=== PATIENT | male | born 1950 | race Caucasian/White ===

== ENCOUNTER 2017-07-26 06:02 | Day surgery (SDC) | payer MEDICARE, BC ==
[~2017-07-26] VITALS: Ht 185.4 cm; Wt 97.5 kg
--- NOTE | ~2017-07-26 | EGD ---
EGD REPORT [facility] [address] [place] [address] NAME: CARLO ZEPEDA : [birth year] STATUS : REG [facility]#: [id number] AGE: 67 ADM/REG DATE : 07/26/17 MR#: [id number] REPORT SERV DATE: 07/26/17 DICTATED BY: MANISH NOEL DATE: 07/26/17 REPORT STATUS : Draft TRANSCRIBED BY: [employer] DATE: 07/26/17 [facility] Patient Name: Carlo Zepeda Date of : 1950 Attending MD: MANISH NOEL MD Procedure Date No Time: 07/26/2017 Procedure: Colonoscopy Indications: Screening in patient at increased risk: Family history of 1st-degree relative with colorectal cancer Referring MD: Nickolas Mayorga Medicines: as per anesthesia Complications: No immediate complications. Procedure: Pre-Anesthesia Assessment: - ASA Grade Assessment: II - A patient with mild systemic disease. After I obtained informed consent, the scope was passed under direct vision. Throughout the procedure, the patient's blood pressure, pulse, and oxygen saturations were monitored continuously. The PCF [id number] was introduced through the anus and advanced to the cecum, identified by appendiceal orifice and ileocecal valve. The colonoscopy was somewhat difficult due to significant looping. The patient tolerated the procedure. The quality of the bowel preparation was adequate to identify polyps. Findings: The perianal and digital rectal examinations were normal. A few small and large-mouthed diverticula were found in the sigmoid colon and in the descending colon. Internal hemorrhoids were found during endoscopy and were mild. Impression: - Diverticulosis in the sigmoid colon and in the descending colon. - Internal hemorrhoids. Recommendation: - Repeat colonoscopy in 5 years for surveillance. Procedure Code(s): --- Professional --- 04122, Colonoscopy, flexible, proximal to splenic flexure; diagnostic, with or without collection of specimen(s) by brushing or washing, with or without colon decompression (separate procedure) Diagnosis Code(s): --- Professional --- EGD REPORT [facility] [address] [place], [place] [address]. [address] NAME: CARLO ZEPEDA : 50 STATUS : REG [facility] PAT#: [id number] AGE: 67 ADM/REG DATE : 07/26/17 MR#: [id number] REPORT SERV DATE: 07/26/17 DICTATED BY: MANISH NOEL DATE: 07/26/17 REPORT STATUS : Draft TRANSCRIBED BY: [employer] DATE: 07/26/17 K64.8, Other hemorrhoids K57.30, Diverticulosis of large intestine without perforation or abscess without bleeding Z12.11, Encounter for screening for malignant neoplasm of colon Z80.0, Family history of malignant neoplasm of digestive organs CPT copyright 2013 [employer]. All rights reserved. The codes documented in this report are preliminary and upon manufacturing engineering director review may be revised to meet current compliance requirements. MANISH NOEL MD 07/26/2017 8:11 AM This report has been signed electronically. Number of Addenda: 0 Note Initiated On: 07/26/2017 7:16 AM Scope Withdrawal Time 0 hours 11 minutes 1 second [address] [place] [address]
[~2017-07-26 06:02] MED LIST: CENTRUM PO; PRAVACHOL80 MG PO; PRIN10 PO
== END 2017-07-26 23:59 | disposition home or self-care (01) ==
LOC: DMU 06:02 → EDSEX 07-27 11:00 → DMU 07-27 11:00
PROVIDERS: Internal Medicine Gastroenterology
PROC: 0DJD8ZZ Inspection of Lower Intestinal Tract, Via Natural or Artificial Opening Endoscopic (ICD-10-PCS; principal; 2017-07-26 07:30)
DX: Z12.11 Encounter for screening for malignant neoplasm of colon (principal); K57.30 Diverticulosis of large intestine without perforation or abscess without bleeding; K64.8 Other hemorrhoids; I10 Essential (primary) hypertension; Z79.899 Other long term (current) drug therapy; Z80.0 Family history of malignant neoplasm of digestive organs; Z88.5 Allergy status to narcotic agent; Z90.49 Acquired absence of other specified parts of digestive tract; Z90.89 Acquired absence of other organs; Z98.890 Other specified postprocedural states